=== PATIENT | male | born 1980 | race Caucasian/White ===

== ENCOUNTER 2024-10-18 14:33 | Emergency (ER) | payer OTHER ==
[~2024-10-18] VITALS: Ht 175.3 cm; Wt 110.7 kg
[2024-10-18 15:59] LABS: BASOPHILS 0.4 % (0-2); EOSINOPHILS 2.6 % (0-6); HEMATOCRIT 44.8 % (35.0-50.0); HEMOGLOBIN 15.7 g/dL (12.0-18.0); LYMPHOCYTES 26.8 % (24-44); MCH 29.2 (27-36); MCV 83.3 fl (81-99); MONOCYTES 6.5 % (0-12); NEUTROPHILS 63.7 % (39-80); PLATELET COUNT 263 K/uL (140-440); RBC 5.38 M/ul (4.3-5.7); RDW 13.8 (10.5-15.0)
[2024-10-18 16:22] LABS: ALBUMIN 3.8 g/dL (3.4-5.0); ALBUMIN/GLOBULIN RATIO 1.09 (1.1-2.4); ANION GAP 11.7 (7-21); BILIRUBIN, TOTAL 0.5 mg/dL (0.2-1.0); BUN/CREATININE RATIO 19.75 (6.0-28.6); CALCIUM 8.9 mg/dL (8.5-10.1); CREATININE, SERUM 0.81 mg/dL (0.70-1.30); POTASSIUM 3.7 mmol/L (3.5-5.1); PROTEIN, TOTAL 7.3 g/dL (6.4-8.2)
[2024-10-18] MEDS ORDERED: TRAZODONE HCL50 MG PO (17:10)
[2024-10-18 17:15] VITALS: BP 145/94
--- NOTE | 2024-10-19 13:01 | EKG ---
[facility] [address] [facility] [place], [place] [address] Signed Normal sinus rhythm Normal ECG No previous ECGs available Confirmed by Fahad Friend DO ([id number]) on 10/19/2024 1:01:07 PM Electronically Signed By: FAHAD FRIEND DO 10/19/24 1301 PATIENT NAME: MATEUS DILLON Electrocardiogram DATE OF : 78 PHYSICIAN: FAHAD FRIEND DO REPORT #: [id number] REPORT IS CONFIDENTIAL AND NOT TO BE RELEASED WITHOUT AUTHORIZATION
== END 2024-10-18 17:15 | disposition home or self-care (01) ==
LOC: ED 14:33
PROVIDERS: Emergency Medicine
DX: G47.00 Insomnia, unspecified (principal); F41.8 Other specified anxiety disorders
CPT/HCPCS: 36415; 71045; 80053; 83690; 84484; 85025; 93005; 93010; 99284-25

== ENCOUNTER 2024-12-02 23:22 | Emergency (ER) | payer OTHER ==
[~2024-12-02] VITALS: Ht 175.3 cm; Wt 113.5 kg
[~2024-12-02 23:22] MED LIST: TRAZODONE HCL50 MG PO
[2024-12-02] MEDS ORDERED: ASPIRIN 81 MG CHEW PO ONE (23:45)
[2024-12-02 23:46] LABS: BASOPHILS 0.6 % (0-2); EOSINOPHILS 3.6 % (0-6); HEMATOCRIT 43.4 % (35.0-50.0); HEMOGLOBIN 15.1 g/dL (12.0-18.0); LYMPHOCYTES 25.9 % (24-44); MCH 28.8 (27-36); MCHC 34.7 g/dl (30-36); NEUTROPHILS 60.9 % (39-80); PLATELET COUNT 224 K/uL (140-440); RBC 5.23 M/ul (4.3-5.7); RDW 14.1 (10.5-15.0)
[2024-12-02 23:57] LABS: ALBUMIN 3.7 g/dL (3.4-5.0); ALBUMIN/GLOBULIN RATIO 1.12 (1.1-2.4); ANION GAP 10.7 (7-21); BILIRUBIN, TOTAL 0.3 mg/dL (0.2-1.0); BUN/CREATININE RATIO 21.97 (6.0-28.6); CALCIUM 8.6 mg/dL (8.5-10.1); CREATININE, SERUM 0.91 mg/dL (0.70-1.30); POTASSIUM 3.7 mmol/L (3.5-5.1)
[2024-12-03] MEDS ORDERED: hydrOXYzine pamoate 50 MG CAP PO ONE (00:15)
[2024-12-03] MEDS ORDERED: FAMOTIDINE 20 MG/ 2 ML VIAL IV ONE (00:15)
[2024-12-03] MEDS ORDERED: FAMOTIDINE 20 MG/ 2 ML VIAL ONE (00:20)
[2024-12-03] MEDS ORDERED: HYDROXYZINE HCL25 MG PO (01:02)
[2024-12-03 01:09] VITALS: BP 129/81
--- NOTE | 2024-12-03 17:49 | EKG ---
[facility] [address] [place] [facility] [place] [address] Signed Normal sinus rhythm T wave abnormality, consider inferior ischemia Abnormal ECG When compared with ECG of 18-OCT-2024 15:43, No significant change was found Confirmed by Fahad Friend DO ([id number]) on 12/03/2024 5:49:12 PM Electronically Signed By: FAHAD FRIEND DO 12/03/24 1749 PATIENT NAME: MATEUS DILLON Electrocardiogram DATE OF : 78 PHYSICIAN: FAHAD FRIEND DO REPORT #: [id number] REPORT IS CONFIDENTIAL AND NOT TO BE RELEASED WITHOUT AUTHORIZATION
== END 2024-12-03 01:11 | disposition home or self-care (01) ==
LOC: ED 23:22
PROVIDERS: Internal Medicine
DX: F41.9 Anxiety disorder, unspecified (principal); H81.10 Benign paroxysmal vertigo, unspecified ear; Z79.899 Other long term (current) drug therapy
CPT/HCPCS: 36415; 71045; 80053; 83735; 84484; 85025; 93005; 93010; 96374; 99285-25; A9270